=== PATIENT | female | born 1985 | race Caucasian/White ===

== ENCOUNTER → 2017-11-23 | Outpatient (CLI) | payer OTHER ==
[2017-11-23 08:22] LABS: ADD MAN DIFF? NO
[2017-11-23 08:34] LABS: BASO % 0 % (0-3); EOS # 0.1 x10^3/uL (0.0-0.7); EOS % 2 % (0-3); HEMATOCRIT 38.5 % (36.0-47.0); HEMOGLOBIN 13.1 g/dL (12.0-15.5); LYMPH # 3.8 x10^3/uL (1.0-4.8); LYMPH % 44 % (24-48); MEAN CORPUSCULAR HEMOGLOBIN 30 pg (25-35); MEAN CORPUSCULAR HGB CONC 34 g/dL (31-37); MEAN CORPUSCULAR VOLUME 87 fL (79-100); MONO # 0.7 x10^3/uL (0.0-1.1); MONO % 8 % (0-9); NEUT % 46 % (31-73); PLATELET COUNT 247 x10^3/uL (140-400); RED BLOOD COUNT 4.42 x10^6/uL (3.50-5.40); WHITE BLOOD COUNT 8.7 x10^3/uL (4.0-11.0)
[2017-11-23 08:50] LABS: ANION GAP 9 (6-14); BLOOD UREA NITROGEN 15 mg/dL (7-20); CARBON DIOXIDE 27 mmol/L (21-32); CHLORIDE 102 mmol/L (98-107); CREATININE 0.7 mg/dL (0.6-1.0); GFR 95.8; GLUCOSE 78 mg/dL (70-99); POTASSIUM 3.3 mmol/L (3.5-5.1); SODIUM 138 mmol/L (136-145)
[2017-11-23 08:58] LABS: C-REACTIVE PROTEIN < 0.5 mg/L (0-3.3)
[2017-11-23 09:46] LABS: SEDIMENTATION RATE 6 (0-25)
[2017-11-25 18:15] LABS: ANA INTERP Negative (.)
[2017-11-25 23:11] LABS: CLAM <0.10 kU/L (Class 0); CODFISH <0.10 kU/L (Class 0); CORN <0.10 kU/L (Class 0); EGG WHITE <0.10 kU/L (Class 0); MILK <0.10 kU/L (Class 0); PEANUT <0.10 kU/L (Class 0); SCALLOP <0.10 kU/L (Class 0); SESAME SEED <0.10 kU/L (Class 0); SHRIMP 0.68 kU/L (Class II); SOYBEAN <0.10 kU/L (Class 0); WALNUT <0.10 kU/L (Class 0); WHEAT <0.10 kU/L (Class 0)
== END | disposition home or self-care (01) ==
LOC: LAB 08:09
DX: L30.9 Dermatitis, unspecified (principal); L29.8 Other pruritus
CPT/HCPCS: 36415; 80048; 85025; 85651; 86001; 86038; 86140; 86431

== ENCOUNTER → 2018-04-24 | Outpatient (CLI) | payer OTHER ==
[2015-11-27 22:02] VITALS: BP 148/94
[2018-04-24 08:51] LABS: CHOLESTEROL/HDL RATIO 2.1
[2018-04-24 09:04] LABS: FREE T4 1.12 ng/dL (0.76-1.46); THYROID STIM HORMONE (TSH) 1.228 uIU/mL (0.358-3.74)
== END | disposition home or self-care (01) ==
LOC: LAB 08:14
PROVIDERS: ATTEND Obstetrics & Gynecology
DX: E34.9 Endocrine disorder, unspecified (principal)
CPT/HCPCS: 36415; 80061; 84439; 84443; 84481

== ENCOUNTER → 2019-04-25 | Outpatient (CLI) | payer OTHER ==
[2015-11-27 22:02] VITALS: BP 148/94
[2019-04-25 09:09] LABS: CALCIUM 8.8 mg/dL (8.5-10.1); CREATININE 0.7 mg/dL (0.6-1.0); GFR 95.2; POTASSIUM 4.4 mmol/L (3.5-5.1)
[2019-04-25 09:18] LABS: BASO % 1 % (0-3); EOS # 0.1 x10^3/uL (0.0-0.7); EOS % 1 % (0-3); HEMATOCRIT 39.7 % (36.0-47.0); HEMOGLOBIN 13.3 g/dL (12.0-15.5); LYMPH # 1.7 x10^3/uL (1.0-4.8); LYMPH % 36 % (24-48); MEAN CORPUSCULAR HEMOGLOBIN 29 pg (25-35); MEAN CORPUSCULAR HGB CONC 34 g/dL (31-37); MEAN CORPUSCULAR VOLUME 86 fL (79-100); MONO # 0.3 x10^3/uL (0.0-1.1); MONO % 5 % (0-9); NEUT # 2.7 x10^3/uL (1.8-7.7); NEUT % 57 % (31-73); PLATELET COUNT 267 x10^3/uL (140-400); RED BLOOD COUNT 4.64 x10^6/uL (3.50-5.40); RED CELL DISTRIBUTION WIDTH 12.5 % (11.5-14.5); WHITE BLOOD COUNT 4.8 x10^3/uL (4.0-11.0)
[2019-04-25 09:24] LABS: FREE T4 0.98 ng/dL (0.76-1.46); THYROID STIM HORMONE (TSH) 1.151 uIU/mL (0.358-3.74)
== END | disposition home or self-care (01) ==
LOC: LAB 08:46
PROVIDERS: ATTEND Family Medicine
DX: R00.2 Palpitations (principal)
CPT/HCPCS: 36415; 80048; 84439; 84443; 85025

== ENCOUNTER → 2020-08-25 | Outpatient (CLI) | payer OTHER ==
[2015-11-27 22:02] VITALS: BP 148/94
== END ==
LOC: SPEC 08:53
PROVIDERS: ATTEND Obstetrics & Gynecology
DX: Z01.419 Encounter for gynecological examination (general) (routine) without abnormal findings (principal)
CPT/HCPCS: 88175